=== PATIENT | female | born 1995 | race Caucasian/White ===

== ENCOUNTER 2017-05-26 14:26 | Emergency (ER) | payer MEDICAID ==
[2017-05-26 14:45] VITALS: BP 135/77
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
--- NOTE | 2017-05-29 09:06 | CR ---
Hand Comp Min 3V Rt INDICATION: injury FINDINGS: Negative right hand. No acute fracture.
== END 2017-05-26 16:02 | disposition home or self-care (01) ==
LOC: JP.ED 14:26
DX: S60.221A Contusion of right hand, initial encounter (principal); F17.210 Nicotine dependence, cigarettes, uncomplicated; Z98.890 Other specified postprocedural states; Z90.49 Acquired absence of other specified parts of digestive tract; W20.8XXA Other cause of strike by thrown, projected or falling object, initial encounter
CPT/HCPCS: 73130-26-RT; 73130-RT; 99284

== ENCOUNTER 2017-11-21 08:15 | Emergency (ER) | payer MEDICAID ==
[2017-11-21 08:27] VITALS: BP 125/82
[2017-11-21] MEDS ORDERED: Ketorolac 60 MG/2 ML SDV IM ONE (08:42)
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
== END 2017-11-21 09:51 | disposition home or self-care (01) ==
LOC: JP.ED 08:15
DX: S50.11XA Contusion of right forearm, initial encounter (principal); R07.81 Pleurodynia; F17.210 Nicotine dependence, cigarettes, uncomplicated; Z79.84 Long term (current) use of oral hypoglycemic drugs; V86.92XA Unspecified occupant of snowmobile injured in nontraffic accident, initial encounter
CPT/HCPCS: 96372; 99283; J1885

== ENCOUNTER 2018-01-26 08:30 | Emergency (ER) | payer MEDICAID ==
[2018-01-26 08:53] VITALS: BP 144/81
[2018-01-26] MEDS ORDERED: Bacitracin Oint 1 GM U/D Packet TOP ONE (09:14)
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
[2018-01-26] MEDS ORDERED: Ibuprofen 600 MG Tab PO ONE (09:45)
== END 2018-01-26 10:05 | disposition home or self-care (01) ==
LOC: JP.ED 08:30
DX: S01.412A Laceration without foreign body of left cheek and temporomandibular area, initial encounter (principal); S01.111A Laceration without foreign body of right eyelid and periocular area, initial encounter; S60.212A Contusion of left wrist, initial encounter; S60.211A Contusion of right wrist, initial encounter; F17.210 Nicotine dependence, cigarettes, uncomplicated; Z79.899 Other long term (current) drug therapy; Z79.84 Long term (current) use of oral hypoglycemic drugs; Y09 Assault by unspecified means
CPT/HCPCS: 12013; 99283-25; A9270-GY

== ENCOUNTER 2019-05-12 00:51 | Emergency (ER) | payer SELFPAY | END 2019-05-12 01:10 | disposition left against medical advice (07) | LOC: JP.ED 00:51 | DX: Z53.21 Procedure and treatment not carried out due to patient leaving prior to being seen by health care provider (principal) ==

== ENCOUNTER 2019-12-08 22:03 | Emergency (ER) | payer SELFPAY ==
[2019-12-08 22:13] VITALS: BP 116/74; PULSE 100
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
[2019-12-08] MEDS ORDERED: Ibuprofen 800 MG Tab PO ONE (23:30)
== END 2019-12-09 00:01 | disposition home or self-care (01) ==
LOC: JP.ED 22:03
DX: S05.11XA Contusion of eyeball and orbital tissues, right eye, initial encounter (principal); S50.11XA Contusion of right forearm, initial encounter; S80.12XA Contusion of left lower leg, initial encounter; F17.210 Nicotine dependence, cigarettes, uncomplicated; Y04.8XXA Assault by other bodily force, initial encounter; Y92.810 Car as the place of occurrence of the external cause
CPT/HCPCS: 99282; 99283; A9270

== ENCOUNTER 2023-08-30 18:47 | Emergency (ER) | payer BC, MEDICAID ==
[2023-08-30 20:29] VITALS: BP 135/83; PULSE 71
== END 2023-08-30 22:00 | disposition home or self-care (01) ==
LOC: JP.ED 18:47
DX: H66.90 Otitis media, unspecified, unspecified ear (principal)
CPT/HCPCS: 99282